=== PATIENT | male | born 1945 | race Caucasian/White ===

== ENCOUNTER 2018-03-13 21:53 | Emergency (ER) | payer MEDICARE, OTHER, SELFPAY ==
[2018-03-13 21:53] VITALS: BP 161/87; PULSE 57; RESP 14; TEMP 36.3; O2SAT 98; BMI 25.0
[2018-03-13 22:20] LABS: Bacteria 0 SEEN /hpf (None Seen); Mucous, Urine 0 SEEN /hpf (<or=2+); White Blood Cells 0 SEEN /hpf (0-5)
[2018-03-13 22:24] LABS: Color, Urine Yellow (Yellow); Glucose, Dipstick Normal (Normal); Ketone-Dipstick 5 mg/dl (Negative); Leukocyte Esterase-Dipstick Negative /ul (Negative); Nitrite-Dipstick Negative (Negative); Occult Blood-Urine 150 /ul (Negative); Protein-Dipstick 15 mg/dl (Negative); Specific Gravity, Urine 1.025 (1.002-1.030); Urine Bilirubin Dipstick Negative (Negative); Urine Clarity Clear (Clear); Urine Urobilinogen Normal (Normal)
[2018-03-13 22:29] LABS: Red Blood Cells-Urine 10-25 SEEN /hpf (0-5); Squamous Epithelial Cells - UA 0-5 SEEN /hpf (0-5)
[2018-03-13] MEDS: HYDROmorphone 0.5 MG/0.5 ML SYRINGE IV (23:42)
[2018-03-13] MEDS: Ondansetron 4 MG/2 ML Vial IV (23:42)
--- NOTE | 2018-03-14 00:24 | ED.VISSUMM ---
- ER Visit Summary Date of Service: 03/14/18 Chief Complaint: Right flank pain History of Present Illness: The patient is a 72 M presenting for evaluation secondary to right flank pain. Patient reports that since approximately 4 PM today he had a sudden onset of right-sided flank pain. He does have a history of kidney stones in the past. Patient states the pain is in his right flank and goes down to the suprapubic region is associated with nausea and urinary frequency. He denies any hematuria. Patient states that he used to see Dr. Carreno who is no longer in the area. He denies any other associated symptoms. Physical Examination: Vital signs are within normal limits, patient is afebrile. General: Patient is well-nourished well-developed and in no acute distress. Head: Normocephalic, atraumatic Eyes: Pupils equal round and reactive bilaterally, extra occular motion intact bialterally ENT: Moist mucous membranes Neck: Supple, no lymphadenopathy, no JVD, no meningismus CVS: Heart regular rate and rhythm, no murmurs, rubs or gallops, radial pulses 2+ bilaterally Resp: Respirations nondistressed, lung sounds clear bilaterally Abdomen: Soft, nontender, nondistended, no palpable masses, normal bowel sounds Back: Nontender, no CVA tenderness to percussion Extremities: Nontender, atraumatic, active full range of motion, no peripheral edema Skin: warm, no rashes, no petechia Neuro: Alert and oriented x 4, CN 2-12 intact, no lateralizing neurological defecits Psyc: Normal affect Test Results: Urinalysis shows evidence of blood without evidence of pyuria. Bedside renal ultrasound shows mild right-sided hydronephrosis Emergency Department Course and Treatment: Patient presented secondary to flank pain in the setting of having any stones in the past. Ultrasound showed hydronephrosis urinalysis shows blood. Patient was treated with Dilaudid and Zofran and had improvement of pain on repeat evaluation at 1230. He will be discharged with a course of Percocet and Flomax. Disposition: Discharge Impression: 1. Right sided urolithiasis This note was generated with ExpertBeaconation software. It may contain incorrect words, spelling, and punctuation that were not noted in review of the chart prior to signing ED Disposition - Plan for ED Patient: Chief Complaint: Flank Pain Diagnosis: Urolithiasis Instructions: ED Stone Renal W Colic Prescriptions: Oxycodone HCl/Acetaminophen [Percocet 5/325] 1 tab PO Q6H PRN PRN 3 Days #12 tab PRN Reason: Pain Tamsulosin HCl [Flomax] 0.4 mg PO DAILY #7 cap Referrals: Angelia Mayen MD [STAFF PHYSICIAN] - 3-5 Days
--- NOTE | 2018-03-14 00:28 | ED.DCSUM_ITS ---
- ER Visit Summary Date of Service: 03/14/18 Chief Complaint: Right flank pain History of Present Illness: The patient is a 72 M presenting for evaluation secondary to right flank pain. Patient reports that since approximately 4 PM today he had a sudden onset of right-sided flank pain. He does have a history of kidney stones in the past. Patient states the pain is in his right flank and goes down to the suprapubic region is associated with nausea and urinary frequency. He denies any hematuria. Patient states that he used to see Dr. Carreno who is no longer in the area. He denies any other associated symptoms. Physical Examination: Vital signs are within normal limits, patient is afebrile. General: Patient is well-nourished well-developed and in no acute distress. Head: Normocephalic, atraumatic Eyes: Pupils equal round and reactive bilaterally, extra occular motion intact bialterally ENT: Moist mucous membranes Neck: Supple, no lymphadenopathy, no JVD, no meningismus CVS: Heart regular rate and rhythm, no murmurs, rubs or gallops, radial pulses 2 + bilaterally Resp: Respirations nondistressed, lung sounds clear bilaterally Abdomen: Soft, nontender, nondistended, no palpable masses, normal bowel sounds Back: Nontender, no CVA tenderness to percussion Extremities: Nontender, atraumatic, active full range of motion, no peripheral edema Skin: warm, no rashes, no petechia Neuro: Alert and oriented x 4, CN 2-12 intact, no lateralizing neurological defecits Psyc: Normal affect Test Results: Urinalysis shows evidence of blood without evidence of pyuria. Bedside renal ultrasound shows mild right-sided hydronephrosis Emergency Department Course and Treatment: Patient presented secondary to flank pain in the setting of having any stones in the past. Ultrasound showed hydronephrosis urinalysis shows blood. Patient was treated with Dilaudid and Zofran and had improvement of pain on repeat evaluation at 1230. He will be discharged with a course of Percocet and Flomax. Disposition: Discharge Impression: 1. Right sided urolithiasis This note was generated with Paiceation software. It may contain incorrect words, spelling, and punctuation that were not noted in review of the chart prior to signing ED Disposition - Plan for ED Patient: Chief Complaint: Flank Pain Diagnosis: Urolithiasis Instructions: ED Stone Renal W Colic Prescriptions: Oxycodone HCl/Acetaminophen [Percocet 5/325] 1 tab PO Q6H PRN PRN 3 Days #12 tab PRN Reason: Pain Tamsulosin HCl [Flomax] 0.4 mg PO DAILY #7 cap Referrals: Angelia Mayen MD [STAFF PHYSICIAN] - 3-5 Days
[2018-03-14 00:53] VITALS: BP 126/79; PULSE 74; RESP 18; O2SAT 98
[2018-03-14] MEDS: HYDROcodone Bitartrate/Apap 5/325 Tablet PO (00:53)
--- NOTE | 2018-03-14 00:54 | ED.RN ---
this nurse reviewed d/c instructions with pt. pt verbalized understanding of instructions. iv d/c. iv cahteter intact.
== END 2018-03-14 00:54 | disposition home or self-care (01) ==
LOC: ED 23:03
PROVIDERS: Emergency Provider Emergency Medicine; Family Provider Family Medicine; PCP Family Medicine
DX: N13.2 Hydronephrosis with renal and ureteral calculous obstruction (principal); Z87.442 Personal history of urinary calculi
CPT/HCPCS: 81001; 96374; 96375; 99283; A4216; J2405

== ENCOUNTER → 2019-01-21 10:42 | Outpatient (CLI) | payer MEDICARE, OTHER, SELFPAY ==
--- NOTE | 2019-01-21 11:05 | RAD_ITS ---
STUDY: X-RAY - ABDOMEN/PELVIS REASON FOR EXAM: Male, 73 years old. Kidney stones TECHNIQUE: Two AP supine views of the abdomen and pelvis. COMPARISON: None. FINDINGS: Normal visualized lung bases. There is an unremarkable bowel gas pattern. There is no demonstrated free abdominal air. There are several calcifications overlying the mid pole of the left kidney measuring up to 8 mm. There are 2 adjacent calcifications of the mid left pelvis measuring 8.8 x 3.1 mm and 5.0 x 0.2 mm respectively which may be intraureteral. There is a mild thoracolumbar dextroscoliosis. RAD/Abdomen Single View IMPRESSION: 1. Several calcifications overlying the mid pole of the left kidney measuring up to 8 mm which may represent nephrolithiasis. 2. Several linear calcifications seen in the mid left pelvis which may represent distal left ureteral calculi. Electronically Signed: Tobias Palacio MD at 21:53 EDT , Service support ,
== END ==
PROVIDERS: Family Provider Family Medicine; PCP Family Medicine; Referring Provider Urology; Visit Provider Urology
DX: N20.0 Calculus of kidney (principal)
CPT/HCPCS: 74018

== ENCOUNTER → 2019-01-29 07:42 | Outpatient (CLI) | payer MEDICARE, OTHER, SELFPAY ==
--- NOTE | 2019-01-29 07:44 | CT_ITS ---
STUDY: CT ABDOMEN AND PELVIS WITHOUT CONTRAST REASON FOR EXAM: Male, 73 years old. ] Hematuria RADIATION DOSAGE (If Supplied By Facility): CTDIvol = ( 14.02 ) mGy, DLP = ( 799.74 ) mGycm TECHNIQUE: Transaxial images were obtained from the dome of the diaphragm to the symphysis pubis without oral contrast, and without intravenous contrast. Sagittal and coronal images were reconstructed. Individualized dose optimization techniques were used for this CT. COMPARISON: None. FINDINGS: The visualized lung bases are unremarkable. The visualized portions of the heart are within normal limits. Normal liver. Normal gallbladder and extrahepatic biliary system. Normal spleen. Normal pancreas. Normal bilateral adrenal glands. There is a exophytic right renal cyst measuring 1.7 x 1.8 cm. Hounsfield units in the range of simple fluid. There is a vague low attenuation in the right kidney measuring 6.3 mm suggestive of a cyst too small to characterize. There is a focal low attenuating lobulated appearance of the left kidney that may measure up to 1.8 x 1.8 cm. There is a calcification in the left kidney measuring 5.5 mm. Normal left kidney. There is a small hiatal hernia. Normal small intestine. There is mild to moderate stool in the colon. There is diverticulosis without diverticulitis. The appendix is visualized and appears normal. Aorta is tortuous and partially calcified. Normal inferior vena cava. Normal retroperitoneum. Bladder is decompressed there is mild to moderate enlargement of the prostate measuring 5.0 x 4.5 x 4.5 cm. There is a small umbilical hernia containing fat. There is degenerative change of the lumbar spine. L2-L3 there is a broad disc bulge mild/moderate neural foramina narrowing mild central stenosis. L3-L4 there is a broad disc bulge and mild to moderate neural foramina narrowing mild to moderate central stenosis. L4-L5 there is a broad disc bulge with facet arthropathy mild neural foramina narrowing mild to moderate central stenosis. L5-S1 there is vacuum phenomenon and disc space narrowing without significant neural foramina narrowing suggests stenosis. Facet arthropathy is present. CT/Abdomen/Pelvis without Cont IMPRESSION: Indeterminate focal lobulated appearance of the left kidney which may represent a focal benign, solid lobulation of the left kidney versus a possible mass. Recommend follow-up ultrasound. Benign-appearing right renal cyst. Nonobstructing 5.5 mm left renal stone. Mild to moderate constipation diverticulosis no evidence of diverticulitis. Mild enlargement of the prostate recommend correlation with laboratory values. Degenerative changes in the lumbar spine. Electronically Signed: Maria Antonia Smith MD at 16:56 EDT Tel , Service support ,
== END ==
PROVIDERS: Family Provider Family Medicine; PCP Family Medicine; Referring Provider Urology; Visit Provider Urology
DX: N20.0 Calculus of kidney (principal)
CPT/HCPCS: 74176

== ENCOUNTER → 2019-02-01 15:26 | Outpatient (CLI) | payer MEDICARE, OTHER, SELFPAY ==
--- NOTE | 2019-02-01 15:29 | CT_ITS ---
STUDY: CT ABDOMEN AND PELVIS WITH AND WITHOUT CONTRAST REASON FOR EXAM: Male, 73 years old. Left renal mass RADIATION DOSAGE (If Supplied By Facility): CTDIvol = ( 20.08 ) mGy, DLP = ( 2153.47 ) mGycm TECHNIQUE: Transaxial images were obtained from the dome of the diaphragm to the symphysis pubis without oral contrast. IV contrast was administered in arterial and delayed phases. Recent CT assessed as noncontrast phase. Sagittal and coronal images were reconstructed. Individualized dose optimization techniques were used for this CT. COMPARISON: CT abdomen pelvis January 29, 2019 FINDINGS: The visualized lung bases are unremarkable. The visualized portions of the heart are within normal limits. Normal liver. The hepatic dome is excluded. Normal gallbladder and extrahepatic biliary system. Normal spleen. Normal pancreas. Normal bilateral adrenal glands. Normal right kidney. Right renal cysts are present measuring up to 1.9 cm. There is a left renal mid to upper pole 4 mm stone. There is no hydronephrosis. No renal masses are present. Normal visualized stomach. Normal small intestine. Normal colon. Colonic diverticulosis is noted. The appendix is normal. Normal abdominal aorta. Normal inferior vena cava. Normal retroperitoneum. Normal urinary bladder. The prostate measures 4.7 cm in transverse dimension. Normal abdominal wall. Moderate disc space loss is present at the L2-L3 and L5-S1 levels as well as lower visualized thoracic spine. Mild multilevel osteophytosis is present. CT/Abdomen/Pelvis W IV Cont ONLY IMPRESSION: No acute pathology in the abdomen or pelvis. No renal masses. Enlarged prostate. Right renal cysts and left renal stone. Colonic diverticulosis without evidence of inflammation. Electronically Signed: Lupillo Posey, at 16:28 EDT Tel , Service support ,
[2019-02-01 15:45] LABS: CREATININE FINGERSTICK 1.2 mg/dL (0.70-1.30); EGFR FINGERSTICK > 60.0000 mL/min (>60)
== END ==
PROVIDERS: Family Provider Family Medicine; PCP Family Medicine; Referring Provider Urology; Visit Provider Urology
DX: N28.89 Other specified disorders of kidney and ureter (principal)
CPT/HCPCS: 74177; Q9967

== ENCOUNTER → 2019-08-08 09:35 | Outpatient (CLI) | payer MEDICARE, OTHER, SELFPAY ==
--- NOTE | 2019-08-08 09:51 | RAD_ITS ---
STUDY: X-RAY - ABDOMEN/PELVIS REASON FOR EXAM: Male, 74 years old. PASSED KIDNEY STONE ON June. TECHNIQUE: Two AP supine views of the abdomen and pelvis. COMPARISON: Prior study of 01/21/2019 FINDINGS: Normal visualized lung bases. There is an unremarkable bowel gas pattern. There is no demonstrated free abdominal air. The visualized liver, spleen and kidneys are grossly normal in size and morphology. Normal soft tissue structures. Normal visualized osseous structures. RAD/Abdomen Single View IMPRESSION: 2 adjacent calcifications of the mid left pelvis seen on the prior study are not seen at this time, and apparently represent a distal ureteral calcifications which have passed in the interval. No abnormal intra-abdominal or intrapelvic calcifications are seen at this time. The bowel gas pattern is unremarkable with no evidence of ileus or obstruction. Electronically Signed: Tobias Palacio MD at 18:12 EST , Service support ,
== END ==
PROVIDERS: PCP Family Medicine; Referring Provider Nurse Practitioner Adult Health; Visit Provider Nurse Practitioner Adult Health
DX: N20.0 Calculus of kidney (principal)
CPT/HCPCS: 74018

== ENCOUNTER → 2020-01-28 15:34 | Outpatient (CLI) | payer MEDICARE, OTHER, SELFPAY ==
[2020-01-28 16:56] LABS: PSA,Total - Annual Screen 3.64 ng/mL (0.00-4.00)
== END ==
PROVIDERS: PCP Family Medicine; Referring Provider Urology; Visit Provider Urology
DX: Z12.5 Encounter for screening for malignant neoplasm of prostate (principal)
CPT/HCPCS: 36415; 84153; G0103

== ENCOUNTER → 2021-03-04 09:10 | Outpatient (CLI) | payer MEDICARE, OTHER, SELFPAY ==
[2021-03-04 10:14] LABS: PSA,Total - Annual Screen 4.99 ng/mL (0.00-4.00)
== END ==
PROVIDERS: PCP Nurse Practitioner Family; Visit Provider Urology
DX: Z12.5 Encounter for screening for malignant neoplasm of prostate (principal)
CPT/HCPCS: 36415; 84153; G0103

== ENCOUNTER → 2023-03-22 | Outpatient (CLI) | payer MEDICARE, SELFPAY ==
[2023-03-22 10:13] LABS: PSA,Total- Diagnostic 4.65 ng/mL (0.0-4.0)
== END | disposition home or self-care (01) ==
PROVIDERS: PCP Nurse Practitioner Family; Referring Provider Urology; Visit Provider Urology
DX: R97.20 Elevated prostate specific antigen [PSA] (principal)
CPT/HCPCS: 36415; 84153

== ENCOUNTER 2023-10-10 20:15 | Emergency (ER) | payer MEDICARE, SELFPAY ==
[2023-10-10] VITALS (7 sets, daily range): BP systolic 140–177; BP diastolic 80–92; PULSE 57–69; RESP 18; TEMP 35.9–36.6; O2SAT 97–100; BMI 26.4
--- NOTE | 2023-10-10 22:08 | EKG12_ITS ---
Test Reason : Blood Pressure : / mmHG Vent. Rate : 056 BPM Atrial Rate : 056 BPM P-R Int : 184 ms QRS Dur : 080 ms QT Int : 404 ms P-R-T Axes : 008 -02 018 degrees QTc Int : 389 ms Sinus bradycardia Otherwise Normal Confirmed by Mitchel Hirsch ([id number]), order editor ANDREAS LONG ([id number]) on 10/12/2023 11:04:04 AM Referred By: Confirmed By:Mitchel Hirsch
--- NOTE | 2023-10-10 22:12 | EDS_ITS ---
HPI History of Present Illness Chief Complaint: Hypertension Informant: patient Narrative Narrative: Patient presents secondary to concerns of hypertension. 2 weeks ago he had a nosebleed and was seen at the urgent care. At that time his systolic blood pressure was elevated to 171. He was seen by his primary care provider and started on losartan 50 mg daily. He has been checking his blood pressures daily since that time. If it is elevated he will check it multiple times. He has had 2 episodes where his systolic pressure has been elevated over 170 and this concerned him. He had an episode tonight that stayed elevated. Ironically, patient states he has no symptoms. He has checked his blood pressure 8 times today. [facility] Medical History (Updated 10/10/23 @ 22:[address] Sisi Styles MD) Hypertension Migraines Home Medications Cetirizine Hcl [Zyrtec] 10 mg PO DAILY 03/13/18 [History Last Taken Unknown] doxepin 10 mg capsule 1 tab PO DAILY 03/13/18 [History Last Taken Unknown] fexofenadine 60 mg tablet (Lucia Allergy) 60 mg PO DAILY 03/13/18 [History Last Taken Unknown] nadolol 40 mg tablet 1 tab PO QHS 03/13/18 [History Last Taken Unknown] ranitidine HCl 75 mg tablet 30 mg PO QHS 03/13/18 [History Last Taken Unknown] oxycodone-acetaminophen 5 mg-325 mg tablet 1 tab PO Q6H PRN PRN Pain 3 days #12 tabs 03/14/18 [Rx Last Taken Unknown] tamsulosin 0.4 mg capsule 0.4 mg PO DAILY #7 caps 03/14/18 [Rx Last Taken Unknown] Allergy/AdvReac Type Severity Reaction Status Date / Time ketorolac [From Toradol] Allergy Rash Verified 10/10/23 20:16 NSAIDS (Non-Steroidal Allergy Rash Verified 10/10/23 20:16 Anti-Inflamma Social History Smoking Status: Never smoker ROS ROS ED Constitutional Constitutional ED: Denies chills or fever(s) Eyes Eyes: Denies change in vision ENT ENT ED: Denies rhinorrhea or sore throat Cardiovascular Cardiovascular: Denies chest pain or palpitations Respiratory/Chest Respiratory/Chest: Denies cough or dyspnea Gastrointestinal Gastrointestinal: Denies abdominal pain, nausea or vomiting Genitourinary Genitourinary ED: Denies dysuria Musculoskeletal Musculoskeletal: Denies back pain or extremity pain Integumentary Denies Abrasions or rash Neurologic Neurologic: Denies headache(s) or weakness Psychiatric Psychiatric: Denies anxiety or depression Allergic/Immunologic Allergic/Immunologic ED: Denies lip swelling or urticaria EXAM Physical Exam Const Vital Signs: 10/10/23 20:17 10/10/23 21:28 10/10/23 22:00 Temperature 96.7 F L Temperature Source Temporal Pulse Rate 69 60 Respiratory Rate 18 18 Respiratory Effort Respiratory Pattern Blood Pressure 177/89 H 140/91 H 177/92 H Blood Pressure Mean 118 107 120 Pulse Ox 100 97 Oxygen Delivery Method Room Air Room Air 10/10/23 22:00 10/10/23 22:15 10/10/23 22:30 Temperature Temperature Source Pulse Rate 57 L 58 L Respiratory Rate 18 18 Respiratory Effort Normal Non-Labored Respiratory Pattern Normal Blood Pressure 148/80 H 165/91 H Blood Pressure Mean 101 114 Pulse Ox 97 97 Oxygen Delivery Method Positive well nourished and well developed General Appearance ED: well developed HEENT Reports moist mucous membranes Eyes EOMs intact bilaterally Chest Wall inspection of chest normal and palpation of chest normal Resp normal respiratory effort and clear to auscultation bilaterally Cardio regular rate and regular rhythm GI non-tender Palpation: soft Extremity normal to inspection Neuro oriented x3 and no sensory deficits noted Motor Exam: strength 5/5 throughout Psych mental status grossly normal Skin no rashes or lesions noted MDM MDM MDM Narrative Medical decision making narrative: Patient had blood work done yesterday at [facility]. I was able to pull up his records on [facility]. His BUN is 24 and his creatinine is 0.96. Patient is placed on lunchroom monitor and I will get a EKG at this time. He takes 50 mg of losartan in the morning. I will give him 25 mg now and observe him. Patient's last 2 blood pressure readings are 148/80 and 165/91. Patient continues to have no symptoms. Onset of action for his losartan is approximately 6 hours. Patient encouraged to go home and sleep. He is to speak with his primary care physician in the morning regarding his blood pressure readings and any further workup that may be needed. EKG Initial EKG: Attestation: I personally reviewed and interpreted this EKG as follows: Interpretation: Sinus Bradycardia (Sinus bradycardia 56 bpm. No acute ischemia.) Discharge Plan Triage Chief Complaint: Hypertension ED Provider: Sisi Styles Dx/Rx/DC Orders Clinical Impression: Hypertension Instructions: ED Hypertension, Established Prescriptions: No Action fexofenadine [Lucia Allergy] 60 MG tablet 60 mg PO DAILY doxepin 10 MG capsule 1 tab PO DAILY Patient Comments: ranitidine HCl 75 MG tablet 30 mg PO QHS nadolol 40 MG tablet 1 tab PO QHS Patient Comments: Cetirizine Hcl [Zyrtec] 10 MG tablet 10 mg PO DAILY oxycodone-acetaminophen 1 TABLET tablet 1 tab PO Q6H PRN PRN (Reason: Pain) 3 Days Qty: 12 0RF tamsulosin 0.4 MG capsule 0.4 mg PO DAILY Qty: 7 0RF Primary Care Provider: Osmar James NP Referrals: Osmar James NP, EMPLOYEE COMMUNICATIONS COORDINATOR-C [Primary Care Provider] - 3-5 Days Activity Restrictions/Additional Instructions: Please call your primary care physician tomorrow regarding your recent blood pressure readings. You were given an extra half dose of your losartan here tonight. Your lab work that you recently had completed reveals no evidence of organ damage from your high blood pressure. Your EKG tonight does not reveal any evidence of heart strain from high blood pressure.
[2023-10-10] MEDS: Losartan Potassium 25 MG Tablet PO (22:33)
== END 2023-10-10 23:10 | disposition home or self-care (01) ==
PROVIDERS: Emergency Provider Emergency Medicine; PCP Nurse Practitioner Family; Visit Provider Emergency Medicine
DX: I10 Essential (primary) hypertension (principal)
CPT/HCPCS: 93005; 99282

== ENCOUNTER → 2024-04-02 | Outpatient (CLI) | payer MEDICARE, SELFPAY ==
[2024-04-02 14:12] LABS: PSA,Total - Annual Screen 3.94 ng/mL (0.00-4.00)
== END | disposition home or self-care (01) ==
PROVIDERS: PCP Nurse Practitioner Family; Referring Provider Urology; Visit Provider Urology
DX: Z12.5 Encounter for screening for malignant neoplasm of prostate (principal)
CPT/HCPCS: 36415; 84153; G0103

== ENCOUNTER → 2024-04-11 | Outpatient (CLI) | payer MEDICARE, SELFPAY ==
--- NOTE | 2024-04-11 10:03 | RAD_ITS ---
INDICATION: KIDNEY STONES EXAMINATION/TECHNIQUE: X-RAY - XR Abdomen 1 View COMPARISON: August 08, 2019 FINDINGS: BOWEL GAS PATTERN: Non-obstructive. No bowel or stomach distention. FREE AIR: Not assessed on a single supine view. ORGANOMEGALY: Not seen. CALCIFICATIONS: Overlying bowel gas obscures anatomic detail. No abnormal calcifications observed. LOWER CHEST: No acute pathology. BONES AND SOFT TISSUES: No acute pathology. RAD/Abdomen Single View IMPRESSION: Non-obstructive bowel gas pattern. Electronically Signed: Lisa Anderson MD at 8:37 EDT ,
== END | disposition home or self-care (01) ==
PROVIDERS: PCP Nurse Practitioner Family; Referring Provider Urology; Visit Provider Urology
DX: N20.0 Calculus of kidney (principal)
CPT/HCPCS: 74018

== ENCOUNTER 2024-12-19 18:40 | Emergency (ER) | payer MEDICARE, SELFPAY ==
[2024-12-19 18:41] VITALS: BP 113/82; PULSE 78; RESP 16; TEMP 36.7; O2SAT 98; BMI 26.6
[2024-12-19 18:53] VITALS: BP 179/90; PULSE 71; RESP 14; O2SAT 98
[2024-12-19 19:21] VITALS: BP 119/79; BP 127/68; BP 139/76; PULSE 84; PULSE 92; PULSE 94
--- NOTE | 2024-12-19 19:21 | EKG12_ITS ---
Test Reason : DYSRHYTHMIA Blood Pressure : */* mmHG Vent. Rate : 69 BPM Atrial Rate : 69 BPM P-R Int : 188 ms QRS Dur : 82 ms QT Int : 380 ms P-R-T Axes : 10 -2 17 degrees QTcB Int : 407 ms Normal sinus rhythm Normal ECG Confirmed by Mitchel Hirsch ([id number]), editor greeting card ANDREAS LONG ([id number]) on 12/23/2024 10:40:31 AM Referred By: Stanley Hoyos Confirmed By: Mitchel Hirsch
[2024-12-19 20:31] VITALS: BP 119/68; PULSE 68; RESP 15; O2SAT 95
--- NOTE | 2024-12-19 21:03 | EX.ED.DYSGE1 ---
HPI History of Present Illness Chief Complaint: Hypotension Narrative Narrative: Patient is a 79-year-old male with past medical history of migraines, hypertension who presented to the emergency department with concern for low blood pressure. Patient states that he took his blood pressure around 5 PM this evening and noted that his blood pressure was low. He states that he contacted his physician and they advised him to come here to be evaluated. Patient states that originally went to urgent care and then was ultimately sent here. Patient states that recently they increased his blood pressure medication. Patient states that he had a warm feeling to the face otherwise he had no symptoms and felt fine. [facility] Medical History Migraines Hypertension Home Medications ?Medication ?Instructions ?Recorded ?Last Taken ?Type Cetirizine Hcl [Zyrtec] 10 mg PO DAILY 03/13/18 Unknown History doxepin 10 mg capsule 1 tab PO DAILY 03/13/18 Unknown History fexofenadine 60 mg tablet (Lucia 60 mg PO DAILY 03/13/18 Unknown History Allergy) nadolol 40 mg tablet 1 tab PO QHS 03/13/18 Unknown History ranitidine HCl 75 mg tablet 30 mg PO QHS 03/13/18 Unknown History oxycodone-acetaminophen 5 mg-325 1 tab PO Q6H PRN PRN Pain 3 days 03/14/18 Unknown Rx mg tablet #12 tabs tamsulosin 0.4 mg capsule 0.4 mg PO DAILY #7 caps 03/14/18 Unknown Rx Allergy/AdvReac Type Severity Reaction Status Date / Time ketorolac (From Toradol) Allergy Rash Verified 12/19/24 18:44 NSAIDS (Non-Steroidal Allergy Rash Verified 12/19/24 18:44 Anti-Inflamma Social History Smoking Status: Never smoker ROS ROS ED ROS Narrative Constitutional: Denies any fevers, chills, headaches, lightness, dizziness Eyes: Denies change in vision double vision blurry vision Cardiovascular: Denies chest pain or palpitations Respiratory: Denies coughing wheezing shortness of breath Abdomen: Denies abdominal pain nausea vomit diarrhea : Denies urinary symptoms Neurological: Denies numbness, weakness, tingling Musculoskeletal: Denies back pain Skin: Denies rashes or lesions EXAM Physical Exam Narrative Exam Narrative: General: Patient lying in bed rest comfortably did not appear to be in acute distress Head: Atraumatic, normocephalic Eyes: PERRL bilateral, EOMI bilateral, no conjunctival injection noted Neck: Soft, supple, trachea midline Cardiovascular: Regular rate and rhythm no murmurs gallops rubs noted Respiratory: Clear to auscultation bilaterally no rales rhonchi or wheezes noted Abdomen: Soft, nondistended, nontender to palpation Extremities: +5/5 strength noted in the bilateral upper and lower extremities, radial pulses +2/4 in the bilateral extremities, no pedal edema on exam Neurological: Patient following commands knew that he was at [facility] year is 2024 NIH of 0 GCS 15 Skin: Warm, dry, intact no rashes or lesions noted Const Vital Signs: 12/19/24 18:41 12/19/24 18:52 12/19/24 18:53 Temperature 98.1 F Temperature Source Oral Pulse Rate 78 71 Pulse Rate [Lying] Pulse Rate [Sitting (for 1 minute prior to obtaining)] Pulse Rate [Standing (for 1 minute prior to obtaining)] Respiratory Rate 16 14 Respiratory Effort Normal Non-Labored Respiratory Pattern Normal Blood Pressure 113/82 H 179/90 H Blood Pressure [Lying] Blood Pressure [Sitting (for 1 minute prior to obtaining)] Blood Pressure [Standing (for 1 minute prior to obtaining)] Blood Pressure Mean 92 119 Blood Pressure Mean [Lying] Blood Pressure Mean [Sitting (for 1 minute prior to obtaining)] Blood Pressure Mean [Standing (for 1 minute prior to obtaining)] Pulse Ox 98 98 Oxygen Delivery Method Room Air Room Air 12/19/24 19:21 12/19/24 20:31 Temperature Temperature Source Pulse Rate 68 Pulse Rate [Lying] 84 Pulse Rate [Sitting (for 1 minute prior to obtaining)] 94 Pulse Rate [Standing (for 1 minute prior to obtaining)] 92 Respiratory Rate 15 Respiratory Effort Respiratory Pattern Blood Pressure 119/68 Blood Pressure [Lying] 127/68 H Blood Pressure [Sitting (for 1 minute prior to obtaining)] 139/76 H Blood Pressure [Standing (for 1 minute prior to obtaining)] 119/79 Blood Pressure Mean 85 Blood Pressure Mean [Lying] 87 Blood Pressure Mean [Sitting (for 1 minute prior to obtaining)] 97 Blood Pressure Mean [Standing (for 1 minute prior to obtaining)] 92 Pulse Ox 95 Oxygen Delivery Method MDM MDM MDM Narrative Medical decision making narrative: Patient is a 79-year-old male who presented to the emerged part with concern for hypotension. On the differential diagnosis includes but limited to hypotension secondary to increasing his blood pressure medication, dehydration. When the patient arrived here he was noted to be hypertensive and then while in the room he had several blood pressure readings that were normal. Patient's EKG was reviewed and showed sinus rhythm with a rate of 69 bpm. Patient had orthostatic vital signs obtained which were normal. Reevaluated patient he is still feeling well overall and has no complaints. I advised him to follow-up with his primary care physician and have discussion in regards to going back to his original blood pressure medication dose. He states that his physician messaged him back and recommend this as well. He is advised to keep a close eye on his blood pressure and return with worsening symptoms or concerns. All question concerns answered was discharged home in stable condition. Discharge Plan Triage Chief Complaint: Hypotension ED Provider: Stanley Hoyos Dx/Rx/DC Orders Clinical Impression: Encounter for medical screening examination, History of hypertension Prescriptions: No Action fexofenadine [Lucia Allergy] 60 MG tablet 60 mg PO DAILY doxepin 10 MG capsule 1 tab PO DAILY Patient Comments: ranitidine HCl 75 MG tablet 30 mg PO QHS nadolol 40 MG tablet 1 tab PO QHS Patient Comments: Cetirizine Hcl [Zyrtec] 10 MG tablet 10 mg PO DAILY oxycodone-acetaminophen 1 TABLET tablet 1 tab PO Q6H PRN PRN (Reason: Pain) 3 Days Qty: 12 0RF tamsulosin 0.4 MG capsule 0.4 mg PO DAILY Qty: 7 0RF Primary Care Provider: Osmra James NP Referrals: Osmar James NP, [employer] [employer] [Primary Care Provider] - Activity Restrictions/Additional Instructions: Your EKG was normal. Your blood pressures when you went from lying to sitting to standing remained normal. Follow-up with your doctor as we discussed here and return with worsening symptoms or any concerns. Print Language: Belarusian Disposition Disposition: Home, Self Care
[2024-12-19 21:15] VITALS: BP 134/76; PULSE 68; RESP 19; TEMP 36.6; O2SAT 96
== END 2024-12-19 21:16 | disposition home or self-care (01) ==
PROVIDERS: Emergency Provider Emergency Medicine; PCP Nurse Practitioner Family; Referring Provider Emergency Medicine; Visit Provider Emergency Medicine
DX: Z13.9 Encounter for screening, unspecified (principal); I95.9 Hypotension, unspecified
CPT/HCPCS: 93005; 99283

== ENCOUNTER → 2025-04-11 | Outpatient (CLI) | payer MEDICARE, SELFPAY ==
[2025-04-11 15:00] LABS: PSA,Total- Diagnostic 2.50 ng/mL (0.00-4.00)
== END | disposition home or self-care (01) ==
LOC: LAB 13:33
PROVIDERS: PCP Nurse Practitioner Family; Referring Provider Urology; Visit Provider Urology
DX: R97.20 Elevated prostate specific antigen [PSA] (principal)
CPT/HCPCS: 36415; 84153